=== PATIENT | male | born 1960 | race Caucasian/White ===

== ENCOUNTER 2019-01-30 13:38 | Inpatient (IN) | payer OTHER ==
[~2019-01-30] VITALS: Ht 182.9 cm; Wt 107.2 kg
[~2019-01-30 13:38] MED LIST: AMLO10 PO; ASPI81CH PO; ATEN100 PO; BUME2 PO; CARV6.25 PO; FLUT.05NI; HYDCHL12.5 PO; HYDRA25 PO; IMDUR PO; LISI20 PO; POTA10T PO; WARF4 PO
[2019-01-30 13:59] LABS: Source, Urine Clean Catch
[2019-01-30 14:05] LABS: BASOPHILS ABSOLUTE AUTO 0.05 K/mm3 (0.00-0.23); BASOPHILS PERCENT AUTO 0 % (0-2); EOSINOPHILS PERCENT AUTO 0 % (0-6); Hemoglobin 19.1 g/dL (13.5-17.5); IMMATURE GRAN ABSOLUTE AUTO 0.07 K/mm3 (0.00-0.10); IMMATURE GRAN PERCENT AUTO 0 % (0-1); LYMPHOCYTES ABSOLUTE AUTO 1.15 K/mm3 (0.84-5.20); LYMPHOCYTES PERCENT AUTO 6 % (21-46); MONOCYTES ABSOLUTE AUTO 1.24 K/mm3 (0.16-1.47); MONOCYTES PERCENT AUTO 7 % (4-13); Mean Corpuscular HGB 31.6 pg (26.0-34.0); Mean Corpuscular HGB Conc 30.1 g/dL (31.5-36.5); Mean Corpuscular Volume 105 fL (80-100); Mean Platelet Volume 12.7 fL (9.1-12.4); NEUTROPHILS ABSOLUTE AUTO 15.55 K/mm3 (1.96-9.15); NEUTROPHILS PERCENT AUTO 86 % (41-73); Platelet Count 321 K/mm3 (150-400); RDW Coefficient Variation 13.6 % (11.7-14.2); RDW Standard Deviation 53.7 fL (35.1-46.3); Red Blood Cell Count 6.04 M/mm3 (4.30-5.90); White Blood Cell Count 18.06 K/mm3 (4.00-11.30)
[2019-01-30 14:11] LABS: Bilirubin, Urine Neg (Neg); Blood, Urine 2+ (Neg); Glucose Qualitative, Urine 4+ (Neg); Ketones, Urine Neg (Neg); Leukocyte Esterase, Urine Neg (Neg); Nitrite, Urine Neg (Neg); Protein, Urine Neg (Neg); Specific Gravity, Urine 1.005 (1.003-1.022); Urobilinogen, Urine NORM (Normal)
[2019-01-30 14:22] LABS: Hematocrit 63.5 % (37.0-53.0)
[2019-01-30 14:30] LABS: Ethanol (Alcohol), Blood, Med <3 mg/dL
[2019-01-30 14:32] LABS: Alanine Aminotransfer (ALT/SGP 33 U/L (12-78); Albumin, Blood 4.1 g/dL (3.4-5.0); Albumin/Globulin Ratio 0.9 (0.8-1.8); Alk Phos 323 U/L (50-136); Anion Gap 21 mmol/L (6-16); Aspartate Aminotrans (AST/SGOT 34 U/L (12-37); Bilirubin, Total 0.8 mg/dL (0.1-1.0); Blood Urea Nitrogen 73 mg/dL (8-24); Bun/Creatinine Ratio 30.2 (12.0-20.0); CO2, Blood 19 mmol/L (21-32); Calcium, Blood 9.9 mg/dL (8.5-10.1); Chloride, Blood 79 mmol/L (98-108); Creatinine, Blood 2.42 mg/dL (0.60-1.20); Globulin, Blood 4.4 g/dL (2.2-4.0); Glomerular Filtration Rate 29 (60-); Total Protein, Blood 8.5 g/dL (6.4-8.2)
[2019-01-30 14:37] LABS: Appearance, Urine Clear (Clear); Color, Urine Pale Yellow (P-Yellow)
[2019-01-30 14:39] LABS: Bacteria Rare /hpf; Red Blood Cells, Urine 0-2 /hpf (0-2); Squamous Epithelial Cells Rare /hpf (Few); White Blood Cells, Urine 0-2 /hpf (0-5)
[2019-01-30 14:45] LABS: Glucose, Blood 2074 mg/dL (70-99)
[2019-01-30 14:46] LABS: Sodium, Blood 119 mmol/L (136-145)
[2019-01-30 15:09] LABS: PO2 Arterial 74.2 mmHg (80-100); pH Blood Arterial 7.31 (7.35-7.45)
[2019-01-30 15:18] LABS: U Amphetamine Screen Not Detected; U Barbituate Screen Not Detected; U Benzodiazapine Screen Not Detected; U Buprenorphine Screen Not Detected; U Cannabinoids Screen Not Detected; U Cocaine Screen Not Detected; U Methadone Screen Not Detected; U Methamphetamine Screen Not Detected; U Opiates Screen Not Detected; U Oxycodone Screen Not Detected; U Phencyclidine Screen Not Detected; U Propoxyphene Screen Not Detected
[2019-01-30] MEDS ORDERED: ALLO300 PO (16:29)
[2019-01-30] MEDS ORDERED: AMLO10 PO (16:32)
[2019-01-30 16:33] LABS: International Normalized Ratio 0.99; Prothrombin Time Results 10.5 Sec (9.7-11.5)
[2019-01-30] MEDS ORDERED: ATOR10 PO (16:33)
[2019-01-30] MEDS ORDERED: CHLO25B PO (16:34)
[2019-01-30] MEDS ORDERED: BUME1 PO (16:34)
[2019-01-30] MEDS ORDERED: POTA10T PO (16:37)
[2019-01-30] MEDS ORDERED: LOSA50 PO (16:38)
[2019-01-30] MEDS ORDERED: METF500C PO (16:38)
[2019-01-30] MEDS ORDERED: ASPI81CH PO (16:41)
[2019-01-30 16:50] LABS: Uric Acid, Blood 9.7 mg/dL (3.5-7.2)
[2019-01-30 17:00] LABS: Phosphorus, Blood 3.2 mg/dL (2.5-4.9)
[2019-01-30 17:01] LABS: Glucose, Blood 1940 mg/dL (70-99)
[2019-01-30 17:17] LABS: Creatine Kinase MB 10.4 ng/mL (0.0-3.6)
[2019-01-30 17:18] LABS: Creatine Kinase MB Index 0.4 (0.0-4.0)
[2019-01-30 18:14] LABS: Bun/Creatinine Ratio 30.9 (12.0-20.0); Calcium, Blood 8.9 mg/dL (8.5-10.1); Creatinine, Blood 2.2 mg/dL (0.60-1.20); Potassium, Blood 3.2 mmol/L (3.5-5.5)
--- NOTE | 2019-01-30 18:30 | NUR ---
RECEIVED TELEPHONE REPORT FROM JOSÉ MCMANUS, ED, PATIENT TO COME TO ROOM 15.
--- NOTE | 2019-01-30 19:00 | NUR ---
PATIENT ARRIVED TO ROOM 15 VIA GURNEY FROM ED, MOVED TO BED WITH SLIDER, PLACED ON MONITOR, PATIENT IN RESTRAINTS D/T ALTERED MENTAL STATUS AND PULLING ON TUBES AN LINES, PATIENT WAS POSITIONED FOR COMFORT, MINIMALLY RESPONSIVE, CAPUTO CATHETER IN PLACE, TEMP 99.3, REPORT GIVEN TO OBINNA DELGADO RN, NOC SHIFT.
--- NOTE | 2019-01-30 19:15 | NUR ---
ASSUMED CARE BEDSIDE REPORT RECIEVED. PT IS LAYING IN BED, SOMNOLENT WITH PERIODS OF AGITATION/CONFUSION. PT WILL AROUSE TO VERBAL STIMULI, BUT ONLY SAYING SOME WORDS. PT WITH SOFT RESTRAINTS TO EXTREMITIES X4. PT ON 3L O2 NC. VITAL SIGNS STABLE WITH HR 100'S. PT WITH PIV X3, DISCONNECTED FROM IVF AT THIS TIME. WILL START FLUIDS ORDERED. CAPUTO IN PLACE WITH CLEAR YELLOW OUTPUT NOTED. NO FAMILY AT BEDSIDE. WILL CONTINUE TO MONITOR.
[2019-01-30 19:16] LABS: Glucose, Blood 1220 mg/dL (70-99)
[2019-01-30 20:25] LABS: Glucose, Blood 1199 mg/dL (70-99)
[2019-01-30 21:06] LABS: Glucose, Blood 1072 mg/dL (70-99)
[2019-01-30 22:28] LABS: Bun/Creatinine Ratio 28.5 (12.0-20.0); Creatinine, Blood 2.07 mg/dL (0.60-1.20); Potassium, Blood 3.5 mmol/L (3.5-5.5)
[2019-01-30 22:29] LABS: Glucose, Blood 1013 mg/dL (70-99)
[2019-01-30 22:59] LABS: Glucose, Blood 974 mg/dL (70-99)
[2019-01-30 23:59] LABS: Glucose, Blood 964 mg/dL (70-99)
[2019-01-31 00:54] LABS: Glucose, Blood 924 mg/dL (70-99)
[2019-01-31 02:56] LABS: Anion Gap 10 mmol/L (6-16); Blood Urea Nitrogen 59 mg/dL (8-24); Bun/Creatinine Ratio 29.5 (12.0-20.0); CO2, Blood 24 mmol/L (21-32); Chloride, Blood 117 mmol/L (98-108); Glomerular Filtration Rate 36 (60-); Glucose, Blood 873 mg/dL (70-99); Potassium, Blood 3.8 mmol/L (3.5-5.5); Sodium, Blood 151 mmol/L (136-145)
[2019-01-31 03:38] LABS: Adenovirus Not Detected (NOT DETECT); Bordetella pertussis Not Detected (NOT DETECT); Chlamydophila pneumoniae Not Detected (NOT DETECT); Coronavirus 229E Not Detected (NOT DETECT); Coronavirus HKU1 Not Detected (NOT DETECT); Coronavirus NL63 Not Detected (NOT DETECT); Coronavirus OC43 Not Detected (NOT DETECT); Human Metapneumovirus Not Detected (NOT DETECT); Human Rhinovirus/Enterovirus Not Detected (NOT DETECT); Influenza A Not Detected (NOT DETECT); Influenza A/2009-H1 Not Detected (NOT DETECT); Influenza A/H1 Not Detected (NOT DETECT); Influenza A/H3 Not Detected (NOT DETECT); Influenza B Not Detected (NOT DETECT); Mycoplasma pneumoniae Not Detected (NOT DETECT); Parainfluenza Virus 1 Not Detected (NOT DETECT); Parainfluenza Virus 2 Not Detected (NOT DETECT); Parainfluenza Virus 3 Not Detected (NOT DETECT); Parainfluenza Virus 4 Not Detected (NOT DETECT); Respiratory Syncytial Virus Not Detected (NOT DETECT)
[2019-01-31 04:00] LABS: Glucose, Blood 843 mg/dL (70-99)
--- NOTE | 2019-01-31 04:25 | NUR ---
RESTLESS/AGITATION PT HAS CONTINUED TO BE INCREASINGLY RESTLESS AND THRASHING IN BED. PT IS MORE ALERT, BUT REMAINS CONFUSED. DESPITE SOFT WRIST AND ANKLE RESTRAINTS PT HAS MANAGED TO PULL AT CAPUTO CATHETER TO THE POINT OF SIGNIFICANT BLEEDING. PT WITH BLOOD AT MEATUS AND BRIGHT RED BLOOD WITH MODERATE AMOUNT OF CLOTS IN TUBING. CAPUTO IRRIGATED TO CLEAR CLOTS. CAPUTO PATENT AND DRAINING RED AT THIS TIME. PT PLACED IN AISHA VEST IN ADDITION TO SOFT WRIST AND ANKLE RESTRAINTS DUE TO MULTIPLE ATTEMPTS TO CLIMB OUT OF BED. WILL CONTINUE TO MONITOR.
[2019-01-31 04:40] LABS: Troponin I 0.186 ng/mL (0.000-0.040)
[2019-01-31 04:44] LABS: Glucose, Blood 836 mg/dL (70-99)
[2019-01-31 06:06] LABS: Glucose, Blood 825 mg/dL (70-99)
--- NOTE | 2019-01-31 06:07 | NUR ---
SHIFT SUMMARY PT CONTINUES TO REMAIN CONFUSED AND AGITATED. PT MOANING OUT AND CONTINUALLY ATTEMPTING TO GET OUT OF BED. PT WITH AISHA VEST AND SOFT WRIST AND SOFT ANKLE RESTRAINTS IN PLACE. VITAL SIGNS HAVE REMAINED STABLE, PT ON 3L O2 NC. PT WITH 1/2 NS INFUSING AT 200 ML/HR. INSULIN GTT STARTED AT 2 UNITS/HR DUE TO CBG CONSISTENTLY TRENDING IN THE 800'S. CAPUTO REMAINS IN PLACE. CONTINUES TO HAVE COPIOUS AMOUNTS OF BLOOD IN URINE WITH CLOTS THAT REQUIRE IRRIGATION TO CLEAR FROM TUBING. PT CONTINUES TO FIDGET AND ATTEMPT TO REACH FOR CAPUTO. WILL CONTINUE TO MONITOR AND REPORT OFF TO ONCOMING RN.
[2019-01-31 06:28] LABS: BASOPHILS ABSOLUTE AUTO 0.06 K/mm3 (0.00-0.23); BASOPHILS PERCENT AUTO 0 % (0-2); EOSINOPHILS PERCENT AUTO 0 % (0-6); Hemoglobin 18.7 g/dL (13.5-17.5); IMMATURE GRAN PERCENT AUTO 1 % (0-1); LYMPHOCYTES ABSOLUTE AUTO 1.17 K/mm3 (0.84-5.20); LYMPHOCYTES PERCENT AUTO 5 % (21-46); MONOCYTES ABSOLUTE AUTO 1.71 K/mm3 (0.16-1.47); MONOCYTES PERCENT AUTO 7 % (4-13); Mean Corpuscular HGB 30.9 pg (26.0-34.0); Mean Corpuscular HGB Conc 34.6 g/dL (31.5-36.5); Mean Corpuscular Volume 89 fL (80-100); Mean Platelet Volume 11.7 fL (9.1-12.4); NEUTROPHILS ABSOLUTE AUTO 20.83 K/mm3 (1.96-9.15); NEUTROPHILS PERCENT AUTO 87 % (41-73); Platelet Count 213 K/mm3 (150-400); RDW Coefficient Variation 13.1 % (11.7-14.2); RDW Standard Deviation 42.3 fL (35.1-46.3); Red Blood Cell Count 6.05 M/mm3 (4.30-5.90); White Blood Cell Count 23.97 K/mm3 (4.00-11.30)
[2019-01-31 06:47] LABS: Magnesium, Blood 3.2 mg/dL (1.6-2.4)
--- NOTE | 2019-01-31 07:11 | NUR ---
CAPUTO DC'D CAPUTO OCCLUDED BY CLOTS AND UNABLE TO BE IRRIGATED. BLADDER SCAN SHOWED AROUND 500 ML. CAPUTO DC'D AND PT IMMEDIATELY STARTED TO VOID PINK/RED OUTPUT. CLOT NOTED TO HAVE PLUGGED END OF CAPUTO CATH. REPORTED OFF TO ONCOMING RNDIONNE.
[2019-01-31 07:19] LABS: Phosphorus, Blood 4.4 mg/dL (2.5-4.9)
[2019-01-31 07:20] LABS: Bun/Creatinine Ratio 28.2 (12.0-20.0); Calcium, Blood 8.9 mg/dL (8.5-10.1); Creatinine, Blood 2.13 mg/dL (0.60-1.20); Potassium, Blood 3.7 mmol/L (3.5-5.5)
--- NOTE | 2019-01-31 07:20 | NUR ---
START OF SHIFT NOTE: RECEIVED REPORT FROM OBINNA DELGADO RN, ASSUMED CARE, PATIENT IS IN 4 POINT SOFT RESTRAINTS AND IN AISHA VEST, CONTINUES TO BE AGITATED ON INSULIN GTT AT 2 UNITS, GLUCOSE DRAWN BY LAB AT THIS TIME IN 700'S, PATIENT PULLED OUT HIS CAPUTO CATHETER DURING NOC SHIFT AND HAS TROUBLE URINATING, NEW CAPUTO INSERTION WAS ATTEMPTED BUT NOT SUCCESSFUL, PATIENT IS CONFUSED, UNABLE TO ANSWER ANY QUESTIONS, DR. VICTOR WAS CALLED, ORDERED ATIVAN, 2MG ATIVAN WERE GIVEN, CALL LIGHT IN REACH, WILL CONTINUE TO MONITOR.
[2019-01-31 07:50] LABS: Glucose, Blood 757 mg/dL (70-99)
[2019-01-31 09:02] LABS: Glucose, Blood 722 mg/dL (70-99)
[2019-01-31 09:36] LABS: Source, Urine Catheter
[2019-01-31 09:38] LABS: Bilirubin, Urine Neg (Neg); Blood, Urine 5+ (Neg); Glucose Qualitative, Urine 4+ (Neg); Ketones, Urine 1+ (Neg); Leukocyte Esterase, Urine 1+ (Neg); Nitrite, Urine Neg (Neg); Protein, Urine 4+ (Neg); Urobilinogen, Urine NORM (Normal)
[2019-01-31 09:39] LABS: Appearance, Urine Cloudy (Clear); Color, Urine Red (P-Yellow)
--- NOTE | 2019-01-31 09:44 | NUR ---
PATIENT RECEIVED A COMPLETE BED BATH AFTER URINATING ALL OVER HIMSELF AND BED, CAPUTO CATHETER WAS REINSERTED, BLOODY URINE WITH MANY CLOTS NOTED, UA SENT PER PROTOCOL, PATIENT SLIGHTLY CALMER AFTER ATIVAN, BUT CONTINUES TO PULL ON RESTRAINTS, AND IS RESTLESS, PATIENT'S MOTHER AT BEDSIDE, UPDATE ON PATIENT CONDITION WAS PROVIDED, CALL LIGHT IN REACH, WILL CONTINUE TO MONITOR.
[2019-01-31 09:48] LABS: Amorphous Light (0-Heavy); Red Blood Cells, Urine TNTC /hpf (0-2); Squamous Epithelial Cells Not Seen /hpf (Few)
[2019-01-31 09:49] LABS: Bacteria Few /hpf
[2019-01-31 09:55] LABS: Glucose, Blood 686 mg/dL (70-99)
[2019-01-31 10:49] LABS: BASOPHILS ABSOLUTE AUTO 0.05 K/mm3 (0.00-0.23); BASOPHILS PERCENT AUTO 0 % (0-2); EOSINOPHILS PERCENT AUTO 0 % (0-6); Hematocrit 53.4 % (37.0-53.0); Hemoglobin 18.7 g/dL (13.5-17.5); IMMATURE GRAN ABSOLUTE AUTO 0.12 K/mm3 (0.00-0.10); IMMATURE GRAN PERCENT AUTO 1 % (0-1); LYMPHOCYTES ABSOLUTE AUTO 1.48 K/mm3 (0.84-5.20); LYMPHOCYTES PERCENT AUTO 6 % (21-46); MONOCYTES ABSOLUTE AUTO 1.68 K/mm3 (0.16-1.47); MONOCYTES PERCENT AUTO 7 % (4-13); Mean Corpuscular HGB 31.4 pg (26.0-34.0); Mean Corpuscular Volume 90 fL (80-100); NEUTROPHILS ABSOLUTE AUTO 20.01 K/mm3 (1.96-9.15); NEUTROPHILS PERCENT AUTO 86 % (41-73); Platelet Count 237 K/mm3 (150-400); RDW Coefficient Variation 12.8 % (11.7-14.2); RDW Standard Deviation 41.7 fL (35.1-46.3); Red Blood Cell Count 5.95 M/mm3 (4.30-5.90); White Blood Cell Count 23.34 K/mm3 (4.00-11.30)
[2019-01-31 11:10] LABS: Alanine Aminotransfer (ALT/SGP 47 U/L (12-78); Albumin, Blood 3.4 g/dL (3.4-5.0); Albumin/Globulin Ratio 0.9 (0.8-1.8); Alk Phos 173 U/L (50-136); Anion Gap 6 mmol/L (6-16); Aspartate Aminotrans (AST/SGOT 153 U/L (12-37); Beta-hydroxybutyrate 2.6 mg/dL (0.2-2.8); Bilirubin, Direct 0.2 mg/dL (0.0-0.3); Bilirubin, Indirect 0.4 mg/dL (0.1-0.7); Bilirubin, Total 0.6 mg/dL (0.1-1.0); Blood Urea Nitrogen 56 mg/dL (8-24); Bun/Creatinine Ratio 27.2 (12.0-20.0); CO2, Blood 26 mmol/L (21-32); Calcium, Blood 8.7 mg/dL (8.5-10.1); Chloride, Blood 123 mmol/L (98-108); Creatinine, Blood 2.06 mg/dL (0.60-1.20); Globulin, Blood 3.7 g/dL (2.2-4.0); Glomerular Filtration Rate 35 (60-); Glucose, Blood 599 mg/dL (70-99); Magnesium, Blood 3.3 mg/dL (1.6-2.4); Phosphorus, Blood 3.7 mg/dL (2.5-4.9); Potassium, Blood 3.6 mmol/L (3.5-5.5); Sodium, Blood 155 mmol/L (136-145); Total Protein, Blood 7.1 g/dL (6.4-8.2)
[2019-01-31 12:25] LABS: Glucose, Blood 555 mg/dL (70-99)
[2019-01-31 13:03] LABS: CPK Creatine Kinase 18332 U/L (39-308)
[2019-01-31 13:47] LABS: Glucose, Blood 515 mg/dL (70-99)
--- NOTE | 2019-01-31 14:00 | NUR ---
PATIENT GOES BACK AND FORTH FROM BEING RESTLESS TO RESTING PERIODS, CAPUTO CATHETER IS DRAINING PINK TINGED URINE, CONTINUES ON INSULIN GTT AT 5 UNITS AT THIS TIME, ALSO HAS PRECEDEX INFUSING AT 0.5 MCG/KG/MIN, PATIENT'S BLOOD PRESSURE ELEVATED, DR. MARQUEZ NOTIFIED AND AWARE, NEW ORDERS RECEIVED, HOURLY CHEMSTICKS CONTINUE BY LAB, PATIENT'S MOTHER AT BEDSIDE, 4 POINT RESTRAINTS AND AISHA VEST CONTINUED, PATIENT IS STILL UNABLE TO FOLLOW COMMANDS, MUMBLES AT TIMES, INCOHERENT SPEECH MOST OF THE TIME, CALL LIGHT IN REACH, WILL CONTINUE TO MONITOR.
[2019-01-31 14:20] LABS: Glucose, Blood 447 mg/dL (70-99)
--- NOTE | 2019-01-31 14:28 | NUR ---
PATIENT RECEIVED IV LABETALOL FOR ELEVATED BLOOD PRESSURES, WILL CONTINUE TO MONITOR.
--- NOTE | 2019-01-31 17:55 | NUR ---
SHIFT SUMMARY NOTE: PATIENT IS RESTING COMFORTABLY AT THIS TIME, REPOSITIONED, STILL CONFUSED AND UNABLE TO FOLLOW COMMANDS, UNABLE TO STATE WHERE HE IS, LUNG SOUNDS ARE CLEAR BUT DIMINISHED, NSR WITH HR IN 70'S, BLOOD PRESSURES IN LOW 100'S, BOWEL TONES ARE HYPOACTIVE, CAPUTO CATHETER IN PLACE, CONTINUES TO DRAIN PINK TINGED URINE, PATIENT IS ON PRECEDEX DRIP AT 0.5 MCG/KG/MIN, ALSO RECEIVED 2 MG ATIVAN IV TWICE, INSULIN DRIP OFF, IVF INFUSING, CONTINUES TO BE IN RESTRAINTS, WAS EXTREMELY RESTLESS MOST OF THE SHIFT, SETTLED DOWN AROUND 1730 HOURS, BLOOD SUGARS NOW ARE EVERY 6 HOURS WITH REGULAR INSULIN COVERAGE, INTERMEDIATE SLIDING SCALE, FOR DETIALS SEE SHIFT ASSESSMENT DOCUMENTATION AND NURSES NOTES, CALL LIGHT IN REACH, WILL CONTINUE TO MONITOR.
--- NOTE | 2019-01-31 19:20 | NUR ---
ASSUMED CARE BEDSIDE REPORT RECIEVED. PT IS SEDATED WITH PRECEDEX AT 0.5MCG/KG/HR. PT AROUSES TO NOXIOUS STIMULI AND STARTS THRASHING IN BED, BUT IS UNABLE TO FOLLOW COMMANDS OR SAY ANY WORDS. PT MOANS OUT AT TIMES. PT THEN QUICKLY IS BACK TO RESTING QUIETLY. AISHA VEST AND SOFT RESTRAINTS X4 EXTREMITIES ARE IN PLACE. PT WITH 1/2 NS INFUSING AT 200 ML/HR. CAPUTO IN PLACE WITH CRANBERRY COLORED URINE OUTPUT NOTED, NO CLOTS AT THIS TIME. PT MOTHER IN ROOM AT BEDSIDE. VITAL SIGNS STABLE AT THIS TIME, PT ON 3L O2 NC. WILL CONTINUE TO MONITOR.
[2019-02-01 03:37] LABS: BASOPHILS ABSOLUTE AUTO 0.04 K/mm3 (0.00-0.23); BASOPHILS PERCENT AUTO 0 % (0-2); EOSINOPHILS PERCENT AUTO 0 % (0-6); Hematocrit 47.1 % (37.0-53.0); Hemoglobin 15.8 g/dL (13.5-17.5); IMMATURE GRAN ABSOLUTE AUTO 0.09 K/mm3 (0.00-0.10); IMMATURE GRAN PERCENT AUTO 1 % (0-1); LYMPHOCYTES ABSOLUTE AUTO 1.93 K/mm3 (0.84-5.20); LYMPHOCYTES PERCENT AUTO 11 % (21-46); MONOCYTES ABSOLUTE AUTO 1.35 K/mm3 (0.16-1.47); MONOCYTES PERCENT AUTO 7 % (4-13); Mean Corpuscular HGB 30.7 pg (26.0-34.0); Mean Corpuscular HGB Conc 33.5 g/dL (31.5-36.5); Mean Corpuscular Volume 92 fL (80-100); Mean Platelet Volume 12.1 fL (9.1-12.4); NEUTROPHILS ABSOLUTE AUTO 14.89 K/mm3 (1.96-9.15); NEUTROPHILS PERCENT AUTO 81 % (41-73); Platelet Count 182 K/mm3 (150-400); RDW Coefficient Variation 13.3 % (11.7-14.2); RDW Standard Deviation 44.7 fL (35.1-46.3); Red Blood Cell Count 5.14 M/mm3 (4.30-5.90)
[2019-02-01 04:01] LABS: Albumin, Blood 2.8 g/dL (3.4-5.0); Anion Gap 6 mmol/L (6-16); Blood Urea Nitrogen 65 mg/dL (8-24); Bun/Creatinine Ratio 24.7 (12.0-20.0); CO2, Blood 26 mmol/L (21-32); Calcium, Blood 7.9 mg/dL (8.5-10.1); Chloride, Blood 126 mmol/L (98-108); Creatinine, Blood 2.63 mg/dL (0.60-1.20); Glomerular Filtration Rate 26 (60-); Glucose, Blood 389 mg/dL (70-99); Potassium, Blood 4.4 mmol/L (3.5-5.5); Sodium, Blood 158 mmol/L (136-145)
[2019-02-01 04:28] LABS: CPK Creatine Kinase 10990 U/L (39-308)
--- NOTE | 2019-02-01 05:42 | NUR ---
SHIFT SUMMARY NO ACUTE CHANGES THIS SHIFT. PT CONTINUES TO BE SEDATED WITH PRECEDEX AT 0.3 MCG/KG/MIN. PT MOANS OUT AT TIMES AND IS RESTLESS/AGITATED AT TIMES. PT OPENS EYES TO VERBAL STIMULI. PT REMAINS CONFUSED. PT REMAINS IN SOFT RESTRAINTS X4 AND AISHA VEST. 1/2 NS INFUSING AT 200 ML/HR. PT ON 3L O2 NC. BLOOD PRESSURES HAVE BEEN LABILE THROUGHOUT THE SHIFT WITH SBP 80-170'S. CAPUTO REMAINS IN PLACE WITH IMPROVEMENT IN COLOR OF URINE TO DARK YELLOW. NO BOGDAN BLEEDING OR CLOTS NOTED TO URINE. WILL CONTINUE TO MONITOR AND REPORT OFF TO ONCOMING RN.
--- NOTE | 2019-02-01 07:05 | NUR ---
START OF SHIFT NOTE: RECEIVED REPORT FROM OBINNA DELGADO, RN, ASSUMED CARE, PATIENT CONTINUES TO BE VISIBLY CONFUSED AND AGITATED, RESTLESS, PULLING ON 4-POINT RESTRAINTS, ALSO IN AISHA VEST, CPAP AT BEDSIDE, PATIENT SHOWED SOME SLEEP APNEA DURING NIGHT, LUNG SOUNDS ARE CLEAR BUT DIMINISHED, NSR WITH HR IN 60'S, BOWEL TONES PRESENT, PATIENT CONTINUES TO BE NPO, CAPUTO CATHETER IN PLACE, URINE NOW DARK YELLOW, 1/2 NS AT 200 CC/HR WITH PRECEDEX AT 0.5 MCG/KG/MIN INFUSING, PATIENT KNOWS HE IS IN THE [facility] BUT UNABLE TO TELL NAME OF HOSPITAL, UNABLE TO TELL ME HIS NAME, FOLLOWS SOME COMMANDS, WHIMPERING AND WHINING AT TIMES, MUMBLED SPEECH, CALL LIGHT IN REACH, WILL CONTINUE TO MONITOR.
--- NOTE | 2019-02-01 07:53 | NUR ---
PATIENT'S MOTHER AND CALLED AND RECEIVED UPDATE ON CONDITION, WILL BE IN TO VISIT LATER.
--- NOTE | 2019-02-01 07:57 | NUR ---
DR. GOLDMAN IN, CONSULTED BY DR. FUNG TO SEE PATIENT, NEW ORDERS RECEIVED.
--- NOTE | 2019-02-01 08:07 | NUR ---
RT AND LAB IN TO DRAW ORDERED ABG'S AND BLOOD SAMPLES.
[2019-02-01 08:10] LABS: PCO2 Arterial 37.3 mmHg (35-45); PO2 Arterial 70.9 mmHg (80-100); pH Blood Arterial 7.41 (7.35-7.45)
--- NOTE | 2019-02-01 08:32 | NUR ---
IMAGING IN TO DO ORDERED RENAL ULTRASOUND.
--- NOTE | 2019-02-01 09:20 | NUR ---
DR. FUNG IN TO SEE PATIENT, NO NEW ORDERS RECEIVED.
--- NOTE | 2019-02-01 14:45 | NUR ---
DR. GOLDMAN WAS UPDATED ON PATIENT CONDITION VIA PHONE, NEW ORDERS RECEIVED.
--- NOTE | 2019-02-01 17:28 | NUR ---
SHIFT SUMMARY NOTE: PATIENT CONTINUES TO BE CONFUSED, HAS MORE EPISODES OF TRYING TO WAKE UP AND ACTUALLY WILL FOLLOW ORDERS TO OPEN EYES AND STATE WHAT HAPPENS, HOWEVER, UNABLE TO FIND THE RIGHT WORDS AND STRING THEM TOGETHER, NO ACUTE EVENTS OTHERWISE, DR. MARQUEZ CONSULTED FOR CRITICAL CARE, ALSO DR. GOLDMAN CONSULTED, PATIENT RESTARTED ON INSULIN GTT, WITH A GOAL OF ABOUT 120-140, NA+ HIGH AT 160, WILL BE REDRAWN AT 1800 AND TO BE CALLED TO DR. GOLDMAN BY 1900 HOURS, PATIENT LESS RESTLESS, CONTINUES AT PRECEDEX AT 0.5 MCG/KG/MIN, REMAINS IN RESTRAINTS, HAS 1/2 NS INFUSING AT 100 CC/HR AND D5W AT 200 CC/HR PER DR. GOLDMAN, CHEMSTICKS ARE EVERY HOUR D/T INSULIN GTT, PATIENT'S LUNGS ARE CLEAR, CAPUTO CATHETER DRAINING ADEQUATE AMOUNT OF URINE, URINE IS NOW DARK YELLOW, SLIGHT BLEEDING NOTED AT MEATUS DURING BED BATH, BUT STOPPED IMMEDIATELY, PATIENT SLEPT DURING MOST OF THE SHIFT, MOTHER AT BEDSIDE, FOR DETAILS SEE SHIFT ASSESSMENT DOCUMENTATION AND NURSES NOTES, CALL LIGHT IN REACH, WILL CONTINUE TO MONITOR.
[2019-02-02 03:03] LABS: BASOPHILS ABSOLUTE AUTO 0.03 K/mm3 (0.00-0.23); BASOPHILS PERCENT AUTO 0 % (0-2); EOSINOPHILS ABSOLUTE AUTO 0.15 K/mm3 (0.00-0.68); EOSINOPHILS PERCENT AUTO 1 % (0-6); Hemoglobin 13.2 g/dL (13.5-17.5); IMMATURE GRAN ABSOLUTE AUTO 0.04 K/mm3 (0.00-0.10); IMMATURE GRAN PERCENT AUTO 0 % (0-1); LYMPHOCYTES ABSOLUTE AUTO 2.06 K/mm3 (0.84-5.20); LYMPHOCYTES PERCENT AUTO 19 % (21-46); MONOCYTES ABSOLUTE AUTO 0.72 K/mm3 (0.16-1.47); MONOCYTES PERCENT AUTO 7 % (4-13); Mean Corpuscular HGB 31.1 pg (26.0-34.0); Mean Corpuscular Volume 94 fL (80-100); Mean Platelet Volume 11.6 fL (9.1-12.4); NEUTROPHILS ABSOLUTE AUTO 7.74 K/mm3 (1.96-9.15); NEUTROPHILS PERCENT AUTO 72 % (41-73); Platelet Count 120 K/mm3 (150-400); RDW Coefficient Variation 13.3 % (11.7-14.2); RDW Standard Deviation 46.4 fL (35.1-46.3); Red Blood Cell Count 4.25 M/mm3 (4.30-5.90); White Blood Cell Count 10.74 K/mm3 (4.00-11.30)
[2019-02-02 03:24] LABS: Albumin, Blood 2.3 g/dL (3.4-5.0); Anion Gap 5 mmol/L (6-16); Blood Urea Nitrogen 58 mg/dL (8-24); Bun/Creatinine Ratio 27.2 (12.0-20.0); CO2, Blood 26 mmol/L (21-32); Calcium, Blood 7.2 mg/dL (8.5-10.1); Chloride, Blood 123 mmol/L (98-108); Creatinine, Blood 2.13 mg/dL (0.60-1.20); Glomerular Filtration Rate 34 (60-); Glucose, Blood 148 mg/dL (70-99); Magnesium, Blood 2.7 mg/dL (1.6-2.4); Phosphorus, Blood 3.3 mg/dL (2.5-4.9); Sodium, Blood 154 mmol/L (136-145)
[2019-02-02 03:34] LABS: CPK Creatine Kinase 4091 U/L (39-308)
--- NOTE | 2019-02-02 05:48 | NUR ---
SHIFT SUMMARY NO ACUTE CHANGES THIS SHIFT. PT HAS REMAINED SEDATED WITH PRECEDEX AT 0.5 MCG/KG/MIN. PT HAS REMAINED RESTFUL THIS SHIFT. PT AWAKENS TO VERBAL STIMULI AND IS ORIENTED TO SELF. VITAL SIGNS HAVE REMAINED STABLE. PT ON 4L O2 NC. PT WITH AISHA VEST AND SOFT RESTRAINTS X4 EXTREMITIES. D5 INFUSING AT 300 ML/HR, AND INSULIN GTT AT 8 UNITS/HR. CBG'S HAVE REMAINED STABLE FROM 140-160'S. CAPUTO REMAINS IN PLACE WITH GOOD URINE OUTPUT NOTED WITH LESS SEDIMENT. WILL CONTINUE TO MONITOR AND REPORT OFF TO ONCOMING RN.
--- NOTE | 2019-02-02 11:17 | NUR ---
0800 PT IS EASY TO AWAKEN AND WILL SLOWLY RESPOND BUT IS APPROP. WILL BEGIN TITRATING PRECEDEX GTT DOWN TO EVALUATE PTS MENTAL STATUS. 0930 PT AWAKE AND CAN REMEMBER LAST SATURDAY BUT NO DETAILS. IS ASKING ABOUT HIS MOTHER AND WANTS TO TALK WITH HER LATER. VSS. IVF PER FLOWSHEET. URINE IS DARK YELLOW/LT CHRIS AND CLEAR. VS NOTED. NEW RESTRAINT ORDERS PLACE. WILL CONSIDER REMOVING ANKLE RESTRAINTS. INSULIN NOTED.
--- NOTE | 2019-02-02 11:29 | NUR ---
1030 PT WAS GIVEN SIP OF WATER WITH STRAW W/O DISTRESS.
[2019-02-02 16:44] LABS: Magnesium, Blood 2.5 mg/dL (1.6-2.4); Potassium, Blood 3.1 mmol/L (3.5-5.5)
--- NOTE | 2019-02-02 18:23 | NUR ---
PT IS RESTING IN BED W/O DISTRESS WATCHING TV. HAS EATEN SMALL AMOUNT OF DINNER W/O DIFFICULTY. PT IS OFF PRECEDEX OF 1500 AND ALL RESTRAINTS FROM 1700. I/O NOTED. PT WAS UP FOR LARGE BM THIS AFTERNOON. CAPUTO CATH REVEALS SOME SURFACE BLEEDING AND CATH CARE DONE PER PT AND RN. PT WAS ABLE TO STAND ON WITH VERY MINIMAL ASSIST BUT WAS LIGHT HEADED DANGLED AT SIDE OF BED THEN PASSED. PT SATS DOWN TO MID 80 RANGE WHEN RETURNED TO BED AND O2 AGAIN REPLACE AT 4L BUT PT DID NOT EXPRESS SOB OR ANY INC. WOB. D5W IS NOW NOW AT 125 ML AND INSULIN GTT AT 4UNITS WITH IVF RATE DEC. AND LAST SUGAR AT 146. WILL FOLLOW AND REPORT STATUS.
--- NOTE | 2019-02-02 19:40 | NUR ---
PATIENT AWAKE AND CALM, A&OX3. GENERAL WEAKNESS. INSULIN DRIP CONTINUES TITRATING NEEDED SEE FLOW SHEET. CAPUTO IN PLACE DRAINING YELLOW URINE, SMALL AMT OF BLEEDING AROUND MEATUS. CAPUTO CATH CARE DONE AND LINEN CHANGED. PATIENT DENIES PAIN. BIOX 99% ON 4L/NC OXYGEN TITRATING DOWN PATIENT LEYDA.
--- NOTE | 2019-02-02 22:20 | NUR ---
DOCTOR JONES NOTIFIED OF LABS ORDER OBTAINED KCL 20MEQ IV
[2019-02-02 22:23] LABS: Potassium, Blood 3.2 mmol/L (3.5-5.5)
--- NOTE | 2019-02-02 23:04 | NUR ---
PATIENT UP TO BSC. PASSED SMALL HARD FORMED BLOOD STREAKED STOOL. MEATUS CONTINUES TO HAVE BLOODY DRAINAGE. CAPUTO DRAINING YELLOW URINE
[2019-02-03 03:42] LABS: BASOPHILS ABSOLUTE AUTO 0.02 K/mm3 (0.00-0.23); BASOPHILS PERCENT AUTO 0 % (0-2); EOSINOPHILS ABSOLUTE AUTO 0.17 K/mm3 (0.00-0.68); EOSINOPHILS PERCENT AUTO 2 % (0-6); Hematocrit 41.3 % (37.0-53.0); Hemoglobin 13.6 g/dL (13.5-17.5); IMMATURE GRAN ABSOLUTE AUTO 0.04 K/mm3 (0.00-0.10); IMMATURE GRAN PERCENT AUTO 0 % (0-1); LYMPHOCYTES ABSOLUTE AUTO 1.67 K/mm3 (0.84-5.20); LYMPHOCYTES PERCENT AUTO 18 % (21-46); MONOCYTES ABSOLUTE AUTO 0.75 K/mm3 (0.16-1.47); MONOCYTES PERCENT AUTO 8 % (4-13); Mean Corpuscular HGB 30.8 pg (26.0-34.0); Mean Corpuscular HGB Conc 32.9 g/dL (31.5-36.5); Mean Corpuscular Volume 94 fL (80-100); Mean Platelet Volume 11.7 fL (9.1-12.4); NEUTROPHILS ABSOLUTE AUTO 6.55 K/mm3 (1.96-9.15); NEUTROPHILS PERCENT AUTO 71 % (41-73); Platelet Count 108 K/mm3 (150-400); RDW Standard Deviation 45.1 fL (35.1-46.3); Red Blood Cell Count 4.41 M/mm3 (4.30-5.90)
[2019-02-03 04:01] LABS: Albumin, Blood 2.3 g/dL (3.4-5.0); Anion Gap 6 mmol/L (6-16); Blood Urea Nitrogen 34 mg/dL (8-24); Bun/Creatinine Ratio 22.8 (12.0-20.0); CO2, Blood 27 mmol/L (21-32); Calcium, Blood 7.6 mg/dL (8.5-10.1); Chloride, Blood 112 mmol/L (98-108); Creatinine, Blood 1.49 mg/dL (0.60-1.20); Glomerular Filtration Rate 51 (60-); Glucose, Blood 142 mg/dL (70-99); Magnesium, Blood 2.4 mg/dL (1.6-2.4); Phosphorus, Blood 2.2 mg/dL (2.5-4.9); Potassium, Blood 3.4 mmol/L (3.5-5.5); Sodium, Blood 145 mmol/L (136-145)
[2019-02-03 04:11] LABS: CPK Creatine Kinase 1728 U/L (39-308)
--- NOTE | 2019-02-03 06:07 | NUR ---
SUMMARY PATIENT AWAKE MOST OF THE NIGHT. A&OX3, USING CALL LIGHT APPROPRIATELY. UP TO BSC SEVERAL TIMES DURING THE NIGHT PASSING SMALL AMT OF BRIGHT RED BLOOD PER RECTUM AND PATIENT CONTINUES TO HAVE SMALL AMT OF BLOODY DRAINAGE FROM MEATUS. PATIENT HAS SEVERAL MOLES TO HIS BACK, THE MOLE ON HIS LEFT SHOULDER IS IRRITATED AND BLEEDING, BACITRACIN OINTMENT PLACED TO MOLE AND COVERED WITH FOAM DRESSING. NO CHANGE TO H&H THIS AM, PLT LOW. DOCTOR JONES AWARE OF AM LABS AND ORDERS OBTAINED. INSULIN DRIP CONTINUES TITRATING T/O NIGHT AT 4 UNITS/HR AT THIS TIME. D5W CONTINUES. PRECEDEX AND RESTRAINTS REMAIN OFF. PATIENT LEYDA PO LIQUIDS WITHOUT DIFFICULTY.
--- NOTE | 2019-02-03 10:59 | NUR ---
PT TOLERATED CAPUTO REMOVAL WELL BUT SMALL MEATUS BLEEDING NOTED, AND WILL F/U. PT WEAK AND SL UNSTEADY ON FEET BUT ONLY 1 PEROSN SBA AND IS MOTIVATED TO IMPROVE. PT A/O AND FEELING WELL ON JUST RA THIS AM. INSULIN GTT IS INC. 8 UNITS WITH 327 INCREASE AND AWAITING INSULIN SS ORDERS. D5W REMAINS AT 75ML TOTAL EVEN WITH RIDERS THIS AM.
--- NOTE | 2019-02-03 11:26 | NUR ---
pt returned to bed with minimal sba. pt sats 96+. pt has voided post cath.
[2019-02-03 12:32] LABS: Potassium, Blood 3.7 mmol/L (3.5-5.5)
--- NOTE | 2019-02-03 14:39 | NUR ---
PT GETTING UP AND DOWN TO SIDE OF BED TO VOID PER URINAL. PT REMAINS A/O AND CALM.
--- NOTE | 2019-02-03 15:57 | NUR ---
PT CONT TO VOID. URINE IS CLEARING OF BLOOD RESIDUE. PT RESTING WELL OVERALL.
--- NOTE | 2019-02-03 17:16 | NUR ---
PT VS NOTED. NO DISTRESS. UP FREQ. TO BEDSIDE TO VOID PER URINAL. WAS BLOOD STAIN BUT IS CLEARING REMAINS YELLOW. CBG NOTED WITH IVF D5W AT 50 ML AND PT TAKING PO WELL NOTED. PT IS VERY A/O AND COOPERATIVE WITH CARE.
--- NOTE | 2019-02-03 20:25 | NUR ---
PATIENT RESTING QUIETLY IN BED, A&O X3 UP TO BSC INDEPENDENTLY. PASSING BROWN FORMED STOOL. PATIENT CONTINUES TO HAVE BLOODY DRAINAGE AT MEATUS. NO C/O PAIN WITH URINATION.
[2019-02-03 20:40] LABS: Potassium, Blood 3.9 mmol/L (3.5-5.5)
--- NOTE | 2019-02-03 21:02 | NUR ---
DOCTOR JONES NOTIFIED OF LABS, KEEP D5 AT 50/HR AND RECHECK LABS IN AM.
[2019-02-04 03:45] LABS: Hematocrit 41.9 % (37.0-53.0); Hemoglobin 13.8 g/dL (13.5-17.5)
[2019-02-04 04:01] LABS: Albumin, Blood 2.3 g/dL (3.4-5.0); Anion Gap 6 mmol/L (6-16); Blood Urea Nitrogen 27 mg/dL (8-24); Bun/Creatinine Ratio 19.7 (12.0-20.0); CO2, Blood 29 mmol/L (21-32); Calcium, Blood 8.6 mg/dL (8.5-10.1); Chloride, Blood 109 mmol/L (98-108); Creatinine, Blood 1.37 mg/dL (0.60-1.20); Glomerular Filtration Rate 56 (60-); Glucose, Blood 256 mg/dL (70-99); Phosphorus, Blood 2.7 mg/dL (2.5-4.9); Potassium, Blood 3.8 mmol/L (3.5-5.5); Sodium, Blood 144 mmol/L (136-145)
--- NOTE | 2019-02-04 06:09 | NUR ---
SUMMARY PATIENT SLEEPING OFF AND ON T/O NIGHT. UP IN ROOM WITH OUT DIFFICULTY. VOIDING PINK TINGED URINE, H&H REMAINS STABLE.
[2019-02-04 06:35] LABS: Magnesium, Blood 2.4 mg/dL (1.6-2.4)
--- NOTE | 2019-02-04 08:26 | NUR ---
START OF SHIFT NOTE: RECEIVED REPORT FROM XENA CHAMPION RN, ASSUMED CARE, PATIENT IS AWAKE, ALERT AND ORIENTED, JOKING, PLEASANT APPEARANCE, DENIES PAIN AND DISCOMFORT, AFEBRILE, LUNG SOUNDS CLEAR, PATIENT ON RA, NSR HR IN 80'S, BLOOD SUGARS IN 200'S, BOWEL TONES PRESENT AND HYPOACTIVE, USES URINAL TO VOID, URINE CONTINUES TO BE PINK TINGED, DENIES PAIN WITH URINATION, PATIENT IS SBA ONLY, INDEPENDENT IN ROOM, CALL LIGHT IN REACH, WILL CONTINUE TO MONITOR.
--- NOTE | 2019-02-04 08:35 | NUR ---
DR. FUNG IN TO SEE PATIENT, NO NEW ORDERS RECEIVED, ALSO REPORT WAS GIVEN TO JOSÉ ROMAN, ON MEDICAL FLOOR, PATIENT WILL BE TRANSFERRED TO MEDICAL FLOOR ROOM 328 VIA WHEELCHAIR.
--- NOTE | 2019-02-04 09:36 | NUR ---
PATIENT WAS TRANSFERRED TO ROOM 339 VIA WHEELCHAIR WITH ALL HIS BELONGINGS AND MEDICATIONS.
--- NOTE | 2019-02-04 09:43 | NUR ---
PT ARRIVED TO ROOM 339 VIA WC FROM ICU. A&O X4 PLEASENT AND COOPERATIVE. ORIENTED TO ROOM, CALL LIGHT, AND CONTROLS. UP SBA TO BR AND BACK TO BED. DENIES NEEDS AND NO COMPLAINTS. CALL LIGHT WITHIN REACH.
--- NOTE | 2019-02-04 16:44 | NUR ---
Initial Visit: Palliative Care Consult for Advanced Care Planning. Pt is A&Ox4 and denies pain at this time. He denies dyspnea, anxiety, and nausea at this time. Engaged in therapeutic discussion regarding advanced care planning. Pt is a and lives at home with his mother. Pt reports at baseline he is independent with ADLs and has no concerns regarding needs of care. Educated on disease process of his chronic illnesses including trajectory. Educated on the importance of having routine conversations with his PCP and complying with recommendations. Educated on the importance of eating appropriate foods to help manage diabetes and suggested to see a e commerce developer. Discussed the importance of considering completing advanced directive. Pt reports he will consider. Left advanced directive with Pt and instructed to contact palliative care with any questions or concerns. Pt reports no other concerns at this time. Palliative Care will remain available.
--- NOTE | 2019-02-04 18:05 | NUR ---
SHIFT SUMMARY PT A&O PLEASENT AND COOPERATIVE T/O SHIFT. NO COMPLAINTS. NO ACUTE CHANGES. PLAN: POSSIBLE DC HOME TOMORROW.
--- NOTE | 2019-02-05 05:10 | NUR ---
FORESTRY INSTRUCTOR SUMMARY NO ACUTE CHANGES THIS SHIFT. PT AAOX3 AND PLEASANT. DENIES PAIN, SOB, N/V. CBG 254 AT HS, COVERED WITH SLIDING SCALE INSULIN PER ORDERS. PT HAS RESTED COMFORTABLY FOR THE MAJORITY OF THE SHIFT. VSS, WILL CONTINUE TO MONITOR.
[2019-02-05 05:37] LABS: Albumin, Blood 2.2 g/dL (3.4-5.0); Anion Gap 6 mmol/L (6-16); Blood Urea Nitrogen 21 mg/dL (8-24); Bun/Creatinine Ratio 20.6 (12.0-20.0); CO2, Blood 24 mmol/L (21-32); Calcium, Blood 8.7 mg/dL (8.5-10.1); Chloride, Blood 107 mmol/L (98-108); Creatinine, Blood 1.02 mg/dL (0.60-1.20); Glomerular Filtration Rate >60 (60-); Glucose, Blood 212 mg/dL (70-99); Magnesium, Blood 2.2 mg/dL (1.6-2.4); Phosphorus, Blood 3.8 mg/dL (2.5-4.9); Sodium, Blood 137 mmol/L (136-145)
[2019-02-05 06:01] LABS: Hematocrit 41.4 % (37.0-53.0); Hemoglobin 14.1 g/dL (13.5-17.5)
[2019-02-05] MEDS ORDERED: INSULANPEN SC (11:49)
[2019-02-05] MEDS ORDERED: Humalog100 UNIT/3 SC (11:50)
--- NOTE | 2019-02-05 14:59 | NUR ---
DISCHARGED TO HOME WITH BELONGINGS, INSTRUCTIONS, AND AN RX FOR GLUCOMETER AND SUPPLIES. HE GAVE HIS OWN INSULIN INJECTION AT LUNCH TIME AND DID WELL. 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 [facility] AP[facility] M[facility]. HE IS GOING TO [facility] STRAIGHT [facility] TO SEE [facility]TING HIS RX'S AND A GLUCOMETER.
== END 2019-02-05 14:09 | disposition home or self-care (01) | DRG 637 ==
LOC: ER 13:38 → ERHOLD 16:48 → ICUW 16:48 → MEDS 02-04 09:22 → ENPENDDIS 02-05 10:56 → MEDS 02-05 14:09
PROVIDERS: Emergency Medicine; Hospitalist; Internal Medicine; Internal Medicine Critical Care Medicine; Internal Medicine Nephrology; Nurse Practitioner Acute Care; Student in an Organized Health Care Education/Training Program; ADMIT Internal Medicine
DX: E11.01 Type 2 diabetes mellitus with hyperosmolarity with coma (principal); G92 Toxic encephalopathy; J96.01 Acute respiratory failure with hypoxia; N17.9 Acute kidney failure, unspecified; I50.32 Chronic diastolic (congestive) heart failure; M62.82 Rhabdomyolysis; I13.0 Hypertensive heart and chronic kidney disease with heart failure and stage 1 through stage 4 chronic kidney disease, or unspecified chronic kidney disease; E87.0 Hyperosmolality and hypernatremia; E87.1 Hypo-osmolality and hyponatremia; I50.9 Heart failure, unspecified; E11.22 Type 2 diabetes mellitus with diabetic chronic kidney disease; G47.33 Obstructive sleep apnea (adult) (pediatric); I48.0 Paroxysmal atrial fibrillation; I25.10 Atherosclerotic heart disease of native coronary artery without angina pectoris; N18.3 Chronic kidney disease, stage 3 (moderate); E86.9 Volume depletion, unspecified; E87.5 Hyperkalemia; E83.39 Other disorders of phosphorus metabolism; E88.09 Other disorders of plasma-protein metabolism, not elsewhere classified; E87.6 Hypokalemia; D63.1 Anemia in chronic kidney disease; M10.9 Gout, unspecified; E86.0 Dehydration; Z79.84 Long term (current) use of oral hypoglycemic drugs; Z79.82 Long term (current) use of aspirin; Z79.899 Other long term (current) drug therapy
CPT/HCPCS: 36415; 36600; 51702; 70450; 71045; 76770; 80048; 80053; 80069; 81001; 82010; 82248; 82550; 82553; 82803; 82947; 83036; 83690; 83735; 83880; 83930; 84100; 84132; 84295; 84484; 84550; 85014; 85018; 85025; 85379; 85610; 87486; 87581; 87633; 87798; 93005; 93010; 94660; 96361-59; 96374-59; 96375-59; 99285-25; C1751; C9113; G0480; J1650; J1815; J2060; J2310; J3480; J7030; J7060; J7070